=== PATIENT | female | born 1955 | race Caucasian/White ===

== ENCOUNTER → 2020-07-14 | Outpatient (CLI) | payer OTHER ==
[~2020-07-14] MED LIST: ASMANEX0.135 G1 INH; CELEBREX 200 M200 M1 PO; COMPAZINE10 M1 PO; DALMANE15 MG PO; ESTRACE1 MG PO; HYDROCODON-ACE1 EAC2 PO; HYOSCYAMINE0.375 M2 PO; IBUPROFEN 200200 M1 PO; LOMOTIL TABLET1 EACH PO; NORCO 5-325 TA1 EACH PO; PERCOCET 5-3251 EACH PO; PREMARIN0.3 MG PO; PREMARIN0.625 MG PO; PROVERA10 MG PO; PYRIDIUM200 M1 PO; TAMSULOSIN HCL0.4 M1 PER TUBE; VICODIN OR; XOPENEX HF1 UDINHALE IH; ZOFRAN4 MG PO
== END ==
LOC: LAB 11:32
PROVIDERS: ATTEND Surgery
DX: Z20.828 Contact with and (suspected) exposure to other viral communicable diseases (principal)

== ENCOUNTER → 2020-07-21 | Outpatient (CLI) | payer OTHER, MEDICARE | LOC: LAB 14:34 | PROVIDERS: ATTEND Surgery | DX: Z20.828 Contact with and (suspected) exposure to other viral communicable diseases (principal) ==

== ENCOUNTER → 2020-09-27 | Outpatient (CLI) | payer OTHER, MEDICARE ==
--- NOTE | 2020-10-04 12:07 | PATH ---
[facility] [address] [place] [address] PATHOLOGY RPT PROCEDURE Name: SUJEY FOSS Rama Room #: REG [facility].#: [id number] Admission: 09/27/20 Date of : 55 Discharge: Report #: [id number] Path Case #: [id number] [facility] Accession Number: [id number] . 01 Material submitted: . PART A: breast - L BREAST 1:00. Modifiers: left, 1:00 PART B: breast - L BREAST CENTRAL. Modifiers: left, central PART C: breast - L BREAST 1:00, 7 CMFN. Modifiers: left, 1:00 . 01 Clinical history: . LEFT BREAST NODULE/CALCS LEFT BREAST CALCS-CENTRAL . 02 Diagnosis: Breast, left breast 1:00, stereotactic needle core biopsy: - INVASIVE, WELL-DIFFERENTIATED DUCTAL ADENOCARCINOMA, CELESTE GRADE I MEASURING 5 MM IN GREATEST DIMENSION IN A SINGLE CORE IN CONTIGUOUS LENGTH. - BACKGROUND SHOWING DUCTAL CARCINOMA IN SITU OF INTERMEDIATE NUCLEAR GRADE CRIBRIFORM TYPE. - COARSE CALCIFICATION ASSOCIATED WITH DUCTAL CARCINOMA IN SITU. . B. Breast, left breast central, stereotactic needle core biopsy: - INVASIVE, WELL-DIFFERENTIATED DUCTAL ADENOCARCINOMA, CELESTE GRADE I MEASURING 2 MM IN GREATEST DIMENSION IN A SINGLE CORE IN CONTIGUOUS LENGTH. - EXTENSIVE DUCTAL CARCINOMA IN SITU OF INTERMEDIATE NUCLEAR GRADE PRESENT WITHIN THE BACKGROUND OF CRIBRIFORM TYPE. - DUCTAL CARCINOMA ASSOCIATED WITH COARSE CALCIFICATIONS. . C. Breast, left 1:00 7 cm from nipple, ultrasound guided needle core biopsy: - INVASIVE, WELL-DIFFERENTIATED DUCTAL ADENOCARCINOMA, CELESTE GRADE I MEASURING 3 MM IN GREATEST DIMENSION IN A SINGLE CORE IN CONTIGUOUS LENGTH. - Background breast tissue showing nonproliferative fibrocystic changes. (IUV:pit 09/29/2020) QTP 09/29/2020 1308 Local . 02 Comment: Specimen type: Stereotactic needle core biopsy x 2 and ultrasound guided needle core biopsy x 1 Tumor site: Left breast 1:00, left breast central, and left breast 1:00 7 cm from nipple Tumor quantitation: 5 mm, 2 mm, and 3 mm respectively Histologic type: Invasive, well-differentiated ductal adenocarcinoma, and ductal carcinoma in situ in the background [address] [address] PATHOLOGY RPT PROCEDURE Name: SUJEY FOSS Room #: REG NINOSKA Iverson#: [id number] Admission: 09/27/20 Date of : 55 Discharge: Report #: [id number] Path Case #: [id number] Histologic grade: Celeste grade I/III Tubules, nuclei and mitoses: 1, 1 and 1 respectively LVSI: Not identified Microcalcifications: Present in association with ductal carcinoma insitu Markers: ER, [place], Her-2/Kimberlyn and Ki-67 Block: A1 . Co-review: A And P Mechanic slides (A1-7, A3-7, B1-1, B2-1, and C1-1) were co-reviewed by Dr. Yani Gramajo who concurs with my diagnosis. . Findings of this case are discussed with Dr. Efraín Acuna at approximately 10:20 am on 09/29/2020. . ER, KY, Her-2/Kimberlyn, and Ki-67 are performed on block A1 only as the tumor appears morphologically similar in all of the foci. . Properly controlled immunohistochemical stains are performed on block A3 and included p63 as well as SMMHC. The markers show complete loss of myoepithelial cell layer around the tumor supporting the diagnosis rendered. Properly controlled E-cadherin immunohistochemical stain is performed on block B1 and it shows strong membranous reactivity present. The E-cadherin immunohistochemical stain is performed due a lower percentage of tubule formation (less than 10% tubules identified, score = 3); however, the nuclei are lower grade with lower number of mitoses. The intact reactivity of E-cadherin supports this focus to be an invasive, well-differentiated ductal adenocarcinoma (tubules = 3, nuclei = 1 and mitoses= 1). (IUV:pit 09/29/2020) . 02 Addendum: . Special studies report received from [facility], [address] [place] [address], [address], [place], [address], on case [id number], labeled with their number [id number], dated 10/03/2020. . Breast/Prognostic Marker Analysis . Specimen Site: Breast - Breast Cancer Specimen ID #: [id number] . ER (Estrogen Receptor) Present/Positive Percent: 90.00% Analysis: Manual Comments: Staining Intensity: Weak to Moderate. . KY (Progesterone Receptor) Present/Positive Percent: 85.00% [address] [address] PATHOLOGY RPT PROCEDURE Name: SUJEY FOSS Room #: [facility]#: [id number] Admission: 09/27/20 Date of : 55 Discharge: Report #: [id number] Path Case #: [id number] Analysis: Manual Comments: Staining Intensity: Weak to Moderate. . HER2 Not Over-Expressed Score: 1+ Analysis: Manual . Ki-67 Low Proliferation Percent: 5.00% Analysis: Manual . Time to Fixation (Cold Ischemic Time): 5 minutes Duration of Fixation: Not Provided Type of Fixative: 10% Neutral Buffered Formalin . Comments: ER/PgR testing at [facility] [employer]. is performed in compliance with the ASCO/CAP Clinical Practice Guidelines. If the result for ER is less than 1% it is reported as Negative; if the ER result is 1-10% it is reported as Low Positive; if the ER result is greater than 10% it is reported as Positive. If the result for PgR is less than 1% it is reported as Negative; if the PgR result is equal to or greater than 1%, it is reported as Positive. . REF: Sarah KH, Balderas EH, et al: Estrogen and Progesterone Receptor Testing in Breast Cancer. ASCO/CAP Guideline Update. DOI 10.5858/arpa.3745-3537-HL. . Whole slide image capture is performed using [employer] ([employer]) platform. Image analysis, if ordered, is performed using [employer] software. . at [facility] Carlos Jimenez MD Pathologist . Methodology The HER2 Receptor protein expression is analyzed using the [place] HER2 rabbit monoclonal antibody (clone 4B5). This assay is used for diagnostic determination of the HER2 protein over-expression in paraffin embedded, formalin fixed breast cancer tissue on the [employer] Benchmark. The specimen is processed using a secondary antibody-HRP conjugate detection system. The membrane staining of the tumor is determined either by manual score or image analysis. This antibody is intended for in vitro diagnostic use. The score is reported as 0, 1+, 2+, or 3+. This test is used for clinical [address] [address] PATHOLOGY RPT PROCEDURE Name: SUJEY FOSS [facility] [id number] Admission: 09/27/20 Date of : 55 Discharge: Report #: [id number] Path Case #: [id number] purposes. . A rabbit monoclonal antibody (clone SP1) that recognized the Estrogen Receptor is used to perform immunohistochemistry on routinely fixed (formalin) paraffin embedded tissue on the [employer] Benchmark. The specimen is processed using a secondary antibody-HRP conjugate detection system. The percentage of stained tumor nuclei is determined either manually or by image analysis. This test is intended for in vitro diagnostic use. This test is used for clinical purposes. . A rabbit monoclonal antibody (clone 1E2) that recognized the Progesterone Receptor is used to perform immunohistochemistry on routinely fixed (formalin) paraffin embedded tissue on the [place] Benchmark. The specimen is processed using a secondary antibody-HRP conjugate detection system. The percentage of stained tumor nuclei is determined either manually or by image analysis. This test is intended for in vitro diagnostic use. This test is used for clinical purposes. . A rabbit monoclonal antibody (clone 30-9) that recognized Ki67 is used to perform immunohistochemistry on routinely fixed (formalin) paraffin embedded tissue on the [employer] Benchmark. The specimen is processed using a secondary antibody-HRP conjugate detection system. The percentage of stained tumor nuclei is determined either manually or by image analysis. This test is intended for in vitro diagnostic use. This test is used for clinical purposes. . Intended Use: This antibody is intended for in vitro diagnostic (IVD) use. HER2 (4B5) is a rabbit monoclonal antibody intended for the semi-quantitative detection of HER2 antigen in sections of formalin-fixed, paraffin embedded normal and neoplastic tissue. . This antibody is intended for in vitro diagnostic (IVD) use. Estrogen Receptor (ER) (SP1) is a rabbit monoclonal antibody (IgG) that is intended for the qualitative detection of estrogen receptor (ER) antigen in sections of formalin-fixed, paraffin-embedded tissue. ER is a rabbit monoclonal antibody that recognizes human estrogen receptor alpha. . This antibody is intended for in vitro diagnostic (IVD) use. Progesterone Receptor (KY) (1E2) is a rabbit monoclonal antibody (IgG) that is intended for the qualitative detection of progesterone receptor (KY) antigen in sections of formalin fixed, paraffin embedded tissue. KY is a rabbit monoclonal antibody that recognizes the A and B forms of the human progesterone receptor. . This antibody is intended for in vitro diagnostic (IVD) use. Ki-67 (30-9) is a rabbit monoclonal antibody (IgG) directed against C-terminal portion of Ki-67 antigen. Staining for Ki-67 can be used to aid in assessing the [facility] [address] [place] [address] PATHOLOGY RPT PROCEDURE Name: SUJYE FOSS Room #: REG NINOSKA M.Danyell.#: [id number] Admission: 09/27/20 Date of : 55 Discharge: Report #: [id number] Path Case #: [id number] proliferative activity of normal and neoplastic tissue. Ki-67 is a nuclear protein expressed in proliferating cells. During the cell cycle, the Ki-67 antigen is present in the G1, S, G2 and M phase but is absent in the G0 (quiescent phase). . . Disclaimer: This Test was performed by [employer] at [address] [place] [address], [facility]. . [facility] [employer] is a business unit of [employer] a wholly-owned subsidiary of [employer]. . This assay has not been validated on decalcified tissues. Results should be interpreted with caution if this specimen was decalcified given the likelihood of false negativity on decalcified specimens. . Any image(s) that accompany this report is/are a eligibility services representative image(s) only and should not be used to render a diagnosis. . This interpretation is contingent on the specimen and the clinical information received. . For any special tests/stains performed, known positive cells or tissues are tested with each marker and examined to ensure positivity. Positive and negative internal controls, if present, react appropriately. . This analysis is an adjunct to the evaluation of the referring physician and does not represent a final diagnosis. . The immunohistochemistry tests performed at [facility] were validated on tissue fixed in 10% neutral buffered formalin. The performance characteristics of the tests performed on tissue processed in other fixatives is not known. . HER2 testing at [employer] is performed in compliance with the 2018 updated ASCO/CAP Clinical Practice Guideline Focused Update. If the result is EQUIVOCAL (2+), it must be confirmed by an alternative assay such as FISH or Dual JOSE. REF: Jaleel SLATER, JATINDER Balderas et al: Human Epidermal Growth Factor Receptor 2 Testing in Breast Cancer: ASCO/CAP Clinical Practice Guideline Focused Update. J Clin Oncol 36:9100-2582, 2018. . HER2 and ER/KY ASCO/CAP guidelines require fixation in neutral buffered formalin for a minimum of 6 and a maximum of 72 hours. Fixation times less than 6 hours may not adequately preserve cell proteins. Fixation times longer than 72 hours may cause excess cross-linking of proteins reducing [facility] [address] [place] [address] PATHOLOGY RPT PROCEDURE Name: STEVE SUJEY ACUNA Room #: REG [facility]#: [id number] Admission: 09/27/20 Date of : 55 Discharge: Report #: [id number] Path Case #: [id number] the antigen available for staining. Either scenario can cause reduced staining; hence false negative results are possible and should be considered for these situations if the HER2 IHC score is less than 3+ or ER or KY is negative (no staining or <1% positive). It is recommended that specimens fixed longer than 72 hours with HER2 IHC scores less than 3+ be confirmed by HER2 FISH or Dual JOSE. The time from biopsy/excision to fixation in formalin (cold ischemic time) must be less than 1 hour. Time to fixation (cold ischemic time) greater than 1 hour should be interpreted with caution. HER2 testing, mainly HER2 by FISH, is particularly vulnerable since excessive cold ischemic time results in preferential loss of HER2 probe signals that may lead to false negative results. . SCORE STAINING PATTERN IN TUMOR CELLS INTERPRETATION RESULTS 0 No staining observed or incomplete, faint membrane staining in less than or equal to 10% of tumor cells. Negative 1+ Incomplete, faint membrane staining in greater than 10% of tumor cells. Negative 2+ Weak to moderate complete membrane staining observed in greater than 10% of tumor cells. Equivocal* *Must be confirmed by alternative assay (IHC/FISH/Dual JOSE) 3+ Intense, complete membrane staining in greater than 10% of tumor cells. Positive . A complete copy of the report is on file. . Professional and Technical services performed by [employer]. at [address] [facility] [address], [place] [address]. . (IUV:amj 10/03/2020) . AZJ/10/03/2020 Addendum Electronically Signed by Mahsa Castellanos MD, Pathologist . 02 Electronically signed: . Mahsa Castellanos MD, Pathologist NPI- [id number] . 01 Gross description: . A. The specimen is received in formalin, labeled "Sujey Foss A" and consists of a white cassette containing multiple needle cores of yellow fibroadipose tissue measuring 3.5 x 2.2 x 0.5 [place] [address] PATHOLOGY RPT PROCEDURE Name: SUJEY FOSS Room #: REG CLVikash Iverson#: [id number] Admission: 09/27/20 Date of : 55 Discharge: Report #: [id number] Path Case #: [id number] are transferred to cassette A1. Also received are multiple needle cores of yellow fibroadipose tissue measuring 5.3 x 2.0 x 0.5 cm in aggregate which are entirely submitted in A2-A3. The specimen was collected at 12:20 PM on 09/27/2020 and placed in formalin at 12:25 PM. The cold ischemic time is 5 minutes and the total formalin fixation time is greater than 6 hours less than 72 hours. . B. The specimen is received in formalin, labeled "Sujey Foss, B" and consists of a white cassette containing multiple needle cores of yellow fiber adipose tissue measuring 3.5 x 1.8 x 0.5 cm in aggregate which are transferred to cassette B1. Also received are multiple needle cores of yellow-white fibroadipose tissue measuring 4.5 x 3.5 x 0.6 cm in aggregate which are entirely submitted in B2-B3. The specimen was collected at 12:50 PM on 09/27/2020 and placed in formalin at 12:57 PM. The cold ischemic time is 7 minutes and the total formalin fixation time is greater than 6 hours less than 72 hours. . C. The specimen is received in formalin, labeled "Sujey Foss, C" and consists of 6 needle cores/fragments of pink-yellow tissue measuring between 0.3 cm and 1.4 cm in length and 0.1-0.2 cm in diameter which are entirely submitted in C1-C3. The specimen was collected at 1:30 PM on 09/27/2020 and placed in formalin at 1:32 PM. The cold ischemic time is 2 minutes and the total formalin fixation time is greater than 6 hours less than 72 hours. (SDY; 09/28/2020) SYU/SYU 09/28/2020 1331 Local . 02 Pathologist provided ICD-10: C50.912, D05.12 . 02 CPT . 989328, 785661, 257730, T23156, M41148 Specimen Comment: A courtesy copy of this report has been sent to [phone], [phone] Specimen Comment: [phone] Specimen Comment: Report sent to / DR ACUNA Performed at: [address], [place], [place] [id number] MD Sonu Verde MD Phone: [phone] Performed at: [address] [id number] MD Mahsa Castellanos MD Phone: [phone]
== END | disposition home or self-care (01) ==
LOC: ULTRA 10:56
PROVIDERS: ATTEND Surgery
DX: C50.912 Malignant neoplasm of unspecified site of left female breast (principal); R92.1 Mammographic calcification found on diagnostic imaging of breast

== ENCOUNTER → 2020-10-13 | Outpatient (CLI) | payer OTHER, MEDICARE ==
[~2020-10-13] MED LIST changes: +ALPRAZOLAM1 MG PO; +CBD PO; +OMEPRAZOLE40 MG PO; +SINGULAIR 10 MG10 M1 PO
== END ==
LOC: LAB 10:46
PROVIDERS: ATTEND Surgery
DX: Z01.812 Encounter for preprocedural laboratory examination (principal); Z20.822 Contact with and (suspected) exposure to COVID-19

== ENCOUNTER 2020-10-14 08:25 | Observation (INO) | payer OTHER, MEDICARE ==
[2020-10-14] VITALS (12 sets, daily range): BP systolic 92–130; BP diastolic 29–99
[~2020-10-14] VITALS: Ht 170.2 cm; Wt 62.6 kg
--- NOTE | 2020-10-14 12:44 | EKG ---
[place] [address] [facility] [employer] [place] [address] ELECTROCARDIOGRAM REPORT Name: SUJEY CARMEN Room #: 150-4 [facility]#: [id number] Admission: 10/14/20 Attend Phys: Efraín Daniel MD Discharge: Date of : 55 Report #: [id number] [facility] Test Date: 2020-10-14 Test Time: 09:45:51 Pat Name: SUJEY DANIEL Department: Room: 150 Gender: F Musculoskeletal Physician: DOROTHY : 1955 Requested By: Efraín Daniel Order Number: [id number] : Rj Duque Measurements Intervals [place] Rate: 61 P: 46 DC: 159 QRS: 28 QRSD: 81 T: 21 QT: 419 QTc: 422 Interpretive Statements Sinus rhythm Abnormal R-wave progression, early transition Compared to ECG 01/27/2010 10:41:32 No significant changes Electronically Signed On 10-14-2020 12:44:31 MUD TEMPERER by Rj Duque [email or web address] <ELECTRONICALLY SIGNED> By: Rj Duque MD, [facility] 10/14/20 1244 0945 4 Rj Duque MD, FACC /EPI
[2020-10-14 17:55] LABS: HEMATOCRIT 37.7 % (37.0-47.0); HEMOGLOBIN 12.2 gm/dL (12.0-15.0); MCH 30.2 pg (26.0-34.0); MCHC 32.2 g/dL (28.0-37.0); MCV 93.6 fL (80.0-100.0); RBC 4.03 mil/uL (4.20-5.00); RDW 13.2 % (10.5-14.5); WBC 10.5 thou/uL (4.0-11.0)
[2020-10-14 18:12] LABS: APTT 24.3 Seconds (24.5-32.8)
--- NOTE | 2020-10-14 19:03 | NUR ---
PT ENTERED THE FLOOR AT 1540 FROM OR. VITALS STABLE. PAIN MEDICATION GIVEN FOR UNCONTROOLABLE PAIN. CELESTE DRAIN EMPTIED AT 1600 WITH 80CC. CHEST BINDER IN PLACE. PT HAS URINATED. IV PATENT WITH NO REDNESS OR EDEMA, SALINE LOCKED. PT SPOUSE CAME OUT OF THE PT ROOM STATING THAT SHE HAS BLEEDING. CHECKED ON PT. VITALS CONTINUE TO BE STABLE MINUS PULSE AT 54. CELESTE DRAINED AGAIN WITH 90CC OUT. ENTIRE L. BREAST BLUE (HEMATOMA). PT BACK TO OR AT 1620.
[2020-10-15] VITALS (11 sets, daily range): BP systolic 57–104; BP diastolic 19–60
[2020-10-15 05:21] LABS: MCH 30.6 pg (26.0-34.0); MCHC 33.5 g/dL (28.0-37.0); MCV 91.4 fL (80.0-100.0); RBC 3.06 mil/uL (4.20-5.00); RDW 13.4 % (10.5-14.5); WBC 6.8 thou/uL (4.0-11.0)
[2020-10-15 05:23] LABS: HEMOGLOBIN 9.4 gm/dL (12.0-15.0)
[2020-10-15 05:36] LABS: CALCIUM 6.6 mg/dL (8.5-10.1); CREATININE 0.7 mg/dL (0.6-1.0); POTASSIUM 3.1 mmol/L (3.5-5.1)
--- NOTE | 2020-10-15 06:17 | NUR ---
ASSUMED CARE OF PATIENT FROM PACU. PATIENT ALERT, PAIN WELL CONTROLLED. DID REQUIRE ONE OXYCODONE THAT SHE STATED HELPED A LOT. AWAKE MOST OF THE NIGHT, ENCOURAGED TO REST. CELESTE DRAINS EMPTIED NEEDED. SO S/S OF DISTRESS. PROGRESSING SLOWLY TOWARDS POC GOALS.
--- NOTE | 2020-10-15 07:38 | O ---
[facility] [place] [address] [place] [address] OPERATIVE REPORT Name: SUJEY CARMEN Rama Room #: 242-P [facility] M..#: [id number] Admission: 10/14/20 Attend Phys: Efraín Acuna MD Discharge: Date of : 55 Report #: [id number] THIS REPORT FOR: cc: Jagdeep Mota Steven F. DO Chu, Peter Y. MD ~ DATE OF SERVICE: 10/14/2020 PREOPERATIVE DIAGNOSIS: Multifocal left breast cancer with ductal carcinoma in situ and invasive ductal component. POSTOPERATIVE DIAGNOSIS: Multifocal left breast cancer with ductal carcinoma in situ and invasive ductal component. PROCEDURES PERFORMED: Left total mastectomy with left sentinel node biopsy. SURGEON: Efraín Acuna MD ANESTHESIA: General anesthesia. ESTIMATED BLOOD LOSS: 50 mL. COMPLICATIONS: None. DESCRIPTION OF PROCEDURE: With the patient under general anesthesia, the Neoprobe was used to listen to the left axilla. The activity was fairly low around 20. I decided to go ahead and inject 2 mL of Lymphazurin subareolarly. Breast was then prepped with ChloraPrep, toweled and draped in sterile fashion. IV antibiotic was administered. Timeout was performed. The mastectomy incisions were made. This included the upper outer two biopsy sites. More inferior stereotactic breast biopsy site was fairly far away and would not be amenable to include that in the incision that was left. The upper skin flap was created. Skin flap was created right at the level of the superficial fascia. The superior skin flap was taken up to just below the clavicle where the breast starts. Attention was paid to the left upper quadrant area where her lesion was located and this was dissected free from the skin up over the upper part of the pectoralis muscle. The inferior skin flap was then created without difficulty in a similar manner. The breast was then taken off the chest wall. During the procedure, medium clips were applied at perforating vessel sites. No bleeding of any significance was encountered during the dissection. The breast was then taken off laterally. The breast was oriented for the pathology with a short stitch superiorly, long stitch laterally. Using separate set of instruments, changing gloves and cautery tip, the sentinel node biopsy was performed. The activity was heard at a specific area, it was [address] [address] OPERATIVE REPORT Name: STEVE SUJEY ACUNA Room #: 242-P [facility] M.R.#: [id number] Admission: 10/14/20 Attend Phys: Efraín Acuna MD Discharge: Date of : 55 Report #: [id number] not real high, in the range of 20 or so. Dissection in this area also showed we were at the lymphatic channel with the Lymphazurin and then the lymph node that was positive for the radioactive activity also had Lymphazurin in it. This is labeled sentinel node. There were actually 3 lymph nodes in a chain together. This was the medial lymph node. This was isolated and sent to pathology as a sentinel node. The other two lymph nodes, one inferior, one superior will be sent for permanent sectioning. Hemostasis obtained. A #19 Akira drain was brought out laterally. This was sewn with 2-0 silk suture to the skin. This was guided up towards the axilla superiorly and then under the upper and curling around to the lower skin flap. No bleeding was identified. The subcutaneous tissue was closed with 3-0 PDS. Skin was closed with 4-0 PDS running subcuticular fashion. Dermabond was applied. Fluffy dressing was applied. The patient was awakened and taken to recovery room. <ELECTRONICALLY SIGNED> By: Efraín Acuna MD 10/15/20 0738 2117 2224 Efraín Acuna MD /nt
--- NOTE | 2020-10-15 07:38 | O ---
[facility] [place] [address] [address] OPERATIVE REPORT Name: SUJEY CARMEN Room #: 242-P [facility] M..#: [id number] Admission: 10/14/20 Attend Phys: Efraín Daniel MD Discharge: Date of : 55 Report #: [id number] THIS REPORT FOR: cc: Jagdeep Mota Steven F. DO Chu, Peter Y. MD ~ DATE OF SERVICE: 10/14/2020 PREOPERATIVE DIAGNOSIS: Postop mastectomy hemorrhage with hematoma under the flap. POSTOPERATIVE DIAGNOSIS: Postop mastectomy hemorrhage with hematoma under the flap. PROCEDURES PERFORMED: Exploration of post mastectomy wound with suture ligation of bleeders site. SURGEON: Efraín Daniel MD ANESTHESIA: General anesthesia. TOTAL BLOOD LOSS: On the skin flap was 500 mL. COMPLICATIONS: None. The patient received one unit of packed cell. DESCRIPTION OF PROCEDURE: The patient was brought down to recovery room for preop. The patient was getting laboratory blood drawn to see where she is at with type and screen and the patient became hypotensive, possibly a vasovagal reaction. Possibly mixed with blood loss. The patient's flap was opened up and she was resuscitated. She started waking up. Blood pressure came back to the 80s and 90s. Anesthesia was present. A second IV was started. The patient was then taken back to the operating room and put under general anesthesia. Betadine was used to prep the mastectomy site. Skin incision was opened. A fairly large amount of clots were removed along with liquified blood measuring a total volume of 500 mL. Exploration of the wound shows a small arterial bleed identified in the pectoralis muscle laterally. This was suture ligated and controlled. Several small sites of oozing were also suture ligated with 4-0 PDS suture. The skin flaps were little thickened and edematous, but viable. Warm irrigation was performed. The patient did receive a unit of blood. The patient did remain stable through the surgery similar to how she was with the first surgery. Two #19 Akira drains were left. One was left lateral and was going up to the axilla and then under the upper flap. The more medial [facility] [address] [place] [address] OPERATIVE REPORT Name: SUJEY CARMEN Room #: 242-P [facility] M..#: [id number] Admission: 10/14/20 Attend Phys: Efraín Daniel MD Discharge: Date of : 55 Report #: [id number] drain was placed under the lower flap coming medially to the upper flap. Michael was placed on the chest wall and also a skin flap. Two #19 Akira drains were left, one going to the axilla, the other one going inferior flap and then to the upper flap. The skin flap was closed. Subcutaneous tissue was closed with 3-0 PDS in running fashion, 4-0 PDS was used to close the skin in a running fashion. Dermabond was applied. Drain dressing Op-Site was used for the drain site and a fluffy 4 x 4s, ABD, and Medipore tape for the breast. The patient was taken to recovery room, and due to the hypotensive episode, we will go ahead and have her watched in the ICU tonight. <ELECTRONICALLY SIGNED> By: Efraín Daniel MD 10/15/20 0738 27 50 Efraín Daniel MD /nt
--- NOTE | 2020-10-15 11:30 | NUR ---
PER JONATHAN MADDOX FOR Q4 VITALS WHILE IN ICU. PATIENT TRANSPORTED TO RM 440 BY WHEELCHAIR WITH NO COMPLICATIONS.
--- NOTE | 2020-10-19 10:07 | PATH ---
[facility] [address] [place] [address] PATHOLOGY RPT PROCEDURE Name: SUJEY FOSS Rama Room #: 440-P [facility] M.R.#: [id number] Admission: 10/14/20 Date of : 55 Discharge: 10/15/20 Report #: [id number] Path Case #: [id number] [facility] Accession Number: [id number] . 01 Material submitted: . PART A: lymph node - SENTINEL LYMPH NODE FS PART B: lymph node - NON SENTINEL LYMPH NODE PART C: breast - LEFT BREAST SHORT SUTURE SUPERIOR LONG LATERAL . Modifiers: left . 01 Clinician provided ICD-10: C50.012 . 01 Clinical history: . LEFT BREAST CANCER MULTIFOCAL . 02 Frozen section diagnosis: . FROZEN SECTION DIAGNOSIS AND TOUCH PREPARATION (Mahsa Castellanos MD) . TPA1, [place] lymph node: - No definitive malignant epithelial cells suggestive of macrometastatic carcinoma identified. . These findings are discussed with Dr. Efraín Acuna in OR5 at [facility] and a written report is placed in the patient's chart. . . Frozen section and touch prep performed at [facility], [address] [place] [address]. . . FROZEN SECTION GROSS DESCRIPTION A. Specimen is received fresh from the OR labeled with the patient's name, and "sentinel lymph node", consists of an oval fatty fragment of tissue measuring approximately 2.5 x 1.5 x 1 cm. The specimen is bisected to show a light blue-green dye within a 1.5 x 1 x 1 cm lymph node. The lymph node is bisected, touch preparation is made and labeled TPA1. The entire bisected lymph node is submitted for sentinel lymph node protocol in A1 for permanent sections. (IUV:hong; 10/14/2020) SHALINI/JULIA . 02 Diagnosis: A. Lymph node (1), sentinel lymph node, biopsy: - Reactive lymph node; negative for malignancy. - Negative for isolated tumor cells are micrometastases on the properly controlled immunohistochemical stain AE1/AE3 (0/1). [address] [address] PATHOLOGY RPT PROCEDURE Name: STEVE ACUNASUJEY A Room #: 440-P [facility] Macrina Gandhi.Kyler#: [id number] Admission: 10/14/20 Date of : 55 Discharge: 10/15/20 Report #: [id number] Path Case #: [id number] . B. Lymph node (1), non-sentinel lymph node, biopsy: - Reactive lymph node; negative for malignancy (0/1). . C. Breast, left breast, mastectomy: - DUCTAL CARCINOMA IN SITU, INTERMEDIATE NUCLEAR GRADE AND CRIBRIFORM TYPE IN UPPER OUTER QUADRANT WELL LOWER OUTER QUADRANT FOCALLY. - No residual invasive carcinoma present, see comment. - Three separate biopsy sites identified. - Margins widely free of invasive carcinoma. - Margins free of ductal carcinoma in situ; closest deep margin is 0.8 cm away. - Atypical lobular hyperplasia present within upper outer quadrant along with radial scar, adenosis, columnar cell hyperplasia with atypia, as well as apocrine metaplasia. - Skin and nipple with no evidence of malignancy. - Focal skeletal muscle present at deep margin showing no evidence of malignancy. - One lymph node with reactive changes; negative for malignancy (0/1). . (IUV:executive receptionist; 10/18/2020) . . Surgical Pathology Cancer Case Summary . Protocol posting date: October 2019 . INVASIVE CARCINOMA OF THE BREAST: . . Specimen Identification Procedure ___ Total mastectomy . Specimen Laterality ___ Left . Tumor Site: Invasive Carcinoma ___ Position: 1:00, central and 1:00 clock 7cmFN, Upper outer quadrant . Tumor Size ___ 0.5 cm, 0.2 cm and 0.3 cm (5mm, 2mm and 3mm) . Histologic Type ___ Invasive ductal carcinoma . Histologic Grade (Deysi Histologic Score) ___ No residual invasive carcinoma in the mastectomy [address] [address] PATHOLOGY RPT PROCEDURE Name: SUJEY FOSS Room #: 440-P [facility] M.R.#: [id number] Admission: 10/14/20 Date of : 55 Discharge: 10/15/20 Report #: [id number] Path Case #: [id number] . Tumor Focality ___ Three foci with 1.1 cm and 0.3 cm distance the lesions . Ductal Carcinoma In-Situ (DCIS) ___ Cribriform type, intermediate nuclear grade . Tumor Extension Skin ___ None . Nipple ___ None . Skeletal Muscle ___ Skeletal muscle is free of carcinoma . Margins . Invasive Carcinoma Margins ___ Uninvolved by invasive carcinoma No residual invasive carcinoma in the mastectomy . DCIS Margins ___ Uninvolved by invasive carcinoma Distance from closest margin (millimeters): 8 mm Specify closest margin: posterior/deep . Regional Lymph Nodes . ___ Involved by tumor cells Number of Lymph Nodes Examined: 3 Number of [place] Nodes Examined: 1 Number of Lymph Nodes with Macrometastases (>2 mm): 0 Number of Lymph Nodes with Micrometastases (>0.2 mm to 2 mm and/or >200 cells): 0 Number of Lymph Nodes with Isolated Tumor Cells (=0.2 mm or =200 cells): 0 . Treatment Effect ___ No known presurgical therapy . Lymphovascular Invasion ___ Not identified . Dermal Lymphovascular Invasion ___ Not identified . Pathologic Stage Classification (pTNM, AJCC 8th Edition) [address] [address] PATHOLOGY RPT PROCEDURE Name: SUJEY FOSS Room #: 440-P [facility] Iverson#: [id number] Admission: 10/14/20 Date of : 55 Discharge: 10/15/20 Report #: [id number] Path Case #: [id number] Note: Reporting of pT, pN, and (when applicable) pM categories is based on information available to the pathologist at the time the report is issued. . . TNM Descriptors ___ m (multiple foci of invasive carcinoma) . Primary Tumor (Invasive Carcinoma) (pT) ___ pT1a:Tumor >1 mm but =5 mm in greatest dimension (round any measurement >1.0-1.9 mm to 2 mm) . Category (pN) Modifier (required only if applicable) ___ (sn):[place] node(s) evaluated. . ___ pN0:No regional lymph node metastasis identified . Distant Metastasis (pM) (required only if confirmed pathologically in this case) ___ pMX: Unknown . (IUV:executive receptionist; 10/18/2020) [facility] 10/19/2020 0958 Local . 02 Comment: A, B. Properly controlled AE1/AE3 immunohistochemical stain is performed. . AE1/AE3 on block A1 - negative for metastatic carcinoma. AE1/AE3 on block B1 - negative for metastatic carcinoma. . C. Mass #1, #3 and #4 were associated with biopsy site changes and were by 1.1 cm and 0.3 cm approximately. The sections submitted from the intervening breast tissue between the biopsy site changes show proliferative fibrocystic changes with no evidence of malignancy or ductal carcinoma in situ. Multiple biopsies were examined from 1:00, central, as well as 1:00 7 cm from nipple, and each of these showed 5 mm, 2 mm and 3 mm invasive ductal carcinoma respectively in contiguous length in a single core (biopsy report number [id number]; please see separate report for complete details). There is no residual invasive carcinoma identified within the current specimen examined. The entire upper outer quadrant was submitted for microscopic examination. . These findings are conveyed to Dr. Efraín Acuna in the morning of 10/18/2020. . (IUV:executive receptionist; 10/18/2020) . 02 Electronically signed: . [facility] [address] [place] [address] PATHOLOGY RPT PROCEDURE Name: SUJEY FOSS A Room #: 440-P [facility]..#: [id number] Admission: 10/14/20 Date of : 55 Discharge: 10/15/20 Report #: [id number] Path Case #: [id number] Mahsa Castellanos MD, Pathologist NPI- [id number] . 01 Gross description: . A. PLEASE SEE GROSS DESCRIPTION UNDER FROZEN SECTION DIAGNOSIS. . B. The specimen is received in formalin, labeled "Sujey Foss, non-sentinel node" and consists of 2 segments of yellow orange lobulated tissue measuring 1.7 x 1.6 x 1.0 cm and 2.2 x 2.2 x 1.0 cm. Present within this is a lymph node measuring 2.2 x 1.8 cm showing pink-clemons fatty cut surfaces. The specimen is entirely submitted in B1-B3. . C. The specimen is received in formalin, labeled "Leydi Fossetta, left breast" and consists of an oriented 472.2 g mastectomy specimen with a long suture lateral and short superior. The breast tissue measures 16.3 x 17.4 x 3.5 cm and anterior pink-clemons skin ellipse measuring 13.4 x 5.1 cm. The skin displays an everted nipple areolar complex measuring 2.8 x 2.8 cm. Present on the deep margin is scattered brown muscle. Posterior is inked black, superior-anterior blue, and inferior-anterior green. It is sectioned revealing a pink-clemons mass in the upper outer quadrant (lower portion of outer quadrant approximate 1-2 o'clock position) measuring 3.4 x 1.6 cm that is to margins as follows: 0.3 cm posterior, 2.5 cm superior, and 2.5 cm inferior. The mass shows previous biopsy changes with white plastic beads embedded just posterior the mass. This mass is designated as mass 1. 0.3 cm inferior-medial mass 1, is a second circumscribed pink mass (mass 2) measuring 0.8 x 0.5 cm. This mass is 0.5 cm to posterior and greater than 2 cm from all other margins. 1.1 cm inferior mass 2, in the outer quadrant, is a previous biopsy site measuring 1.4 x 1.4 cm that is 0.5 cm to posterior and 1.0 cm or greater from all other margins. Within this site is a 0.9 x 0.6 cm mass (mass 3). 0.3 cm medial to mass 3, is a previous biopsied mass (mass 4) measuring 2.4 x 1.2 cm that is to margins as follows: 0.5 cm posterior, and greater than 1.5 cm all other margins. . If all previously described masses are contiguous, the total greatest dimension is 7.5 cm. The remaining parenchyma is yellow orange lobulated with 25% dense fibrous tissue and multiple scattered palpable pink nodules predominantly in the upper inner and lower inner quadrants. A blue lymph node candidate is present, lateral to mass 1 in the upper outer quadrant. Financial Quantitative Analyst sections are submitted as follows: . C1: Nipple C2-C6: Entire mass 4 from medial to lateral C7: Tissue between mass 4 and mass 3 C8-C9: Entire mass 3 C10-C11: Entire mass 2 C12: Tissue between mass 2 and mass 1 C13-C17: Entire mass [address] [facility] [address] [place] [address] PATHOLOGY RPT PROCEDURE Name: SUJEY FOSS Room #: 440-P [facility].#: [id number] Admission: 10/14/20 Date of : 55 Discharge: 10/15/20 Report #: [id number] Path Case #: [id number] C18: Lymph node candidate upper outer quadrant C19: Additional lower inner quadrant to include palpable nodules C20: Upper inner quadrant to include palpable nodules C21: Additional lower outer quadrant C22-C55: Entire remainder of upper outer quadrant from medial to lateral (SDY; 10/15/2020) SYU/MBR 10/18/2020 1346 Local . 02 Pathologist provided ICD-10: D05.12, N62, L90.5, N60.22, N60.82 . 02 CPT . 735201, 065274, 060229, [id number] Specimen Comment: A courtesy copy of this report has been sent to [phone] Specimen Comment: Report sent to Performed at: [address], [place] [id number] MD Sonu Verde MD Phone: [phone] Performed at: [address] [id number] MD Mahsa Castellanos MD Phone: [phone]
== END 2020-10-15 15:56 | disposition home or self-care (01) ==
LOC: OR 08:25 → TBA 08:25 → OR 12:27 → 4S 16:04 → ICU 21:16 → 4S 10-15 11:29
PROVIDERS: ADMIT Surgery; ATTEND Surgery
DX: C50.912 Malignant neoplasm of unspecified site of left female breast (principal); I95.9 Hypotension, unspecified; M96.831 Postprocedural hemorrhage of a musculoskeletal structure following other procedure
CPT/HCPCS: 50010; 50101; 50331; 50386; 50417; 51301; 52287; 54118; 55415; 56524; 56525; 56526; 56527; 62110; 62900; 65090; 70005

== ENCOUNTER → 2020-11-30 | Outpatient (CLI) | payer OTHER, MEDICARE | LOC: MRI 09:14 | PROVIDERS: ATTEND Surgery | DX: S23.120A Subluxation of T2/T3 thoracic vertebra, initial encounter (principal); G96.191 Perineural cyst; M51.36 Other intervertebral disc degeneration, lumbar region; M47.814 Spondylosis without myelopathy or radiculopathy, thoracic region; M40.204 Unspecified kyphosis, thoracic region; M47.812 Spondylosis without myelopathy or radiculopathy, cervical region; M48.02 Spinal stenosis, cervical region; X58.XXXA Exposure to other specified factors, initial encounter; Y93.89 Activity, other specified; Y92.89 Other specified places as the place of occurrence of the external cause; Y99.8 Other external cause status ==

== ENCOUNTER → 2020-12-01 | Outpatient (CLI) | payer OTHER, MEDICARE | LOC: MRI 09:28 | PROVIDERS: ATTEND Surgery | DX: M51.36 Other intervertebral disc degeneration, lumbar region (principal); G96.191 Perineural cyst; M46.1 Sacroiliitis, not elsewhere classified ==

== ENCOUNTER → 2020-12-15 | Outpatient (CLI) | payer OTHER, MEDICARE | LOC: NUC 09:06 | PROVIDERS: ATTEND Surgery | DX: M85.88 Other specified disorders of bone density and structure, other site (principal); M81.0 Age-related osteoporosis without current pathological fracture ==

== ENCOUNTER → 2020-12-22 | Outpatient (CLI) | payer OTHER, MEDICARE | LOC: LAB 14:00 | PROVIDERS: ATTEND Surgery | DX: R89.5 Abnormal microbiological findings in specimens from other organs, systems and tissues (principal) ==

== ENCOUNTER → 2021-02-14 | Outpatient (CLI) | payer OTHER, MEDICARE | LOC: CAT 12:30 | PROVIDERS: ATTEND Surgery | DX: M25.851 Other specified joint disorders, right hip (principal); M47.816 Spondylosis without myelopathy or radiculopathy, lumbar region; M25.78 Osteophyte, vertebrae; G95.89 Other specified diseases of spinal cord; R10.2 Pelvic and perineal pain ==

== ENCOUNTER → 2021-02-15 | Outpatient (CLI) | payer OTHER, MEDICARE | LOC: CAT 11:16 | PROVIDERS: ATTEND Surgery | DX: S09.8XXA Other specified injuries of head, initial encounter (principal); W19.XXXA Unspecified fall, initial encounter; Y93.89 Activity, other specified; Y92.89 Other specified places as the place of occurrence of the external cause; Y99.8 Other external cause status ==

== ENCOUNTER → 2021-04-11 | Outpatient (CLI) | payer OTHER, MEDICARE | LOC: BC 12:18 | PROVIDERS: ATTEND Surgery | DX: Z12.31 Encounter for screening mammogram for malignant neoplasm of breast (principal); Z85.3 Personal history of malignant neoplasm of breast; R92.8 Other abnormal and inconclusive findings on diagnostic imaging of breast ==

== ENCOUNTER → 2021-05-25 | Outpatient (CLI) | payer OTHER, MEDICARE ==
[~2021-05-25] MED LIST changes: +ONE-DAILY MULT1 EAC1 PO; +VITAMIN C250 M1 PO; +VITAMIN D310 MC2 PO
== END ==
LOC: RAD 11:23
PROVIDERS: ATTEND Surgery
DX: J43.9 Emphysema, unspecified (principal); J98.11 Atelectasis; R05 Cough; D64.9 Anemia, unspecified

== ENCOUNTER → 2021-05-26 | Outpatient (CLI) | payer OTHER, MEDICARE ==
[~2021-05-26] VITALS: Ht 167.6 cm; Wt 56.4 kg
[2021-05-26 09:58] VITALS: BP 100/39
[2021-05-26 10:13] LABS: HEMATOCRIT 21.2 % (37.0-47.0); HEMOGLOBIN 7.3 gm/dL (12.0-15.0); MCH 30.1 pg (26.0-34.0); MCHC 34.5 g/dL (28.0-37.0); MCV 87.3 fL (80.0-100.0); PLATELET COUNT 121 thou/uL (150-400); RBC 2.43 mil/uL (4.20-5.00); RDW 14.3 % (10.5-14.5); WBC 2.6 thou/uL (4.0-11.0)
[2021-05-26 10:31] LABS: INR 0.98; PROTIME 10.7 Seconds (10.5-12.1)
[2021-05-26 11:54] VITALS: BP 108/57
[2021-05-26 13:39] LABS: ABSOLUTE NEUTROPHILS 1.5 thou/uL (1.4-8.2); PLATELET ESTIMATE NORMAL
--- NOTE | 2021-05-31 14:07 | PATH ---
[facility] [address] [place] [address] PATHOLOGY RPT PROCEDURE Name: SUJEY FOSS Room #: REG [facility]..#: [id number] Admission: 05/30/21 Date of : 55 Discharge: Report #: [id number] Path Case #: [id number] [facility] Accession Number: [id number] . 01 Material submitted: . PART A: bone - BONE MARROW BIOPSY PART B: bone - BONE MARROW CLOT PART C: bone - BONE MARROW ASPIRATE SLIDES PART D: bone - BONE MARROW PERIPHERAL SMEAR PART E: bone - BONE MARROW SENDOUT . 01 Clinical history: . 65 YEAR OLD WOMAN WITH PANCYTOPENIA AND HISTORY OF BREAST CANCER. . 01 Frozen section diagnosis: . . /QMS . 02 Diagnosis: Bone marrow aspirate, biopsy, cell clot and peripheral blood: - Peripheral blood with pancytopenia including severe normocytic anemia, moderate leukopenia and mild thrombocytopenia. - HYPERCELLULAR BONE MARROW WITH TRILINEAGE HEMATOPOIESIS, SIGNIFICANT TRILINEAGE DYSPOIESIS AND INCREASED BLASTS/IMMATURE CELLS CONSISTENT WITH ACUTE MYELOID LEUKEMIA. - See comment. (EDMUND:elie; 05/30/2021) . . Special studies report received from [facility], [address] [place] [address], [address], [place], [address], on case [id number], labeled with their number [id number], dated 05/30/2021. . Flow Cytometry: Hematologic Neoplasia Assessment . 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 Specimen Bone Marrow . Viability 83% (7AAD exclusion) . Interpretation [address] [address] PATHOLOGY RPT PROCEDURE Name: SUJEY FOSS Rama Room #: [facility]#: [id number] Admission: 05/30/21 Date of : 55 Discharge: Report #: [id number] Path Case #: [id number] Bone Marrow: - Features of myeloid dysmaturation with at least 4.2% abnormal myeloid blasts (see comment). - 0.6% polytypic plasma cells detected. - Mild relative eosinophilia (9%). . Comments This is a challenging case due to prominent dysplastic features in the myeloid cells and variable expression of CD34, CD117 and HLA-DR on the immature myeloid cells; making accurate estimation of the blast percentage difficult. The flow cytometry results are compatible with a myeloid neoplastic process with the differential diagnosis primarily including myelodysplastic syndrome and evolving acute myeloid leukemia. Erythroid and megakaryocytic markers were performed and showed no evidence of a significant immature erythroid or megakaryocytic population. Correlation with available clinical, laboratory, and morphologic data, including manual differential count, is necessary. . The case was discussed with Dr. Gramajo on 05/30/2021 . Populations Analyzed . Myeloid Blasts: 4.2% CD45+ (dim), CD34+ (small subset), CD117+ (variable), HLA DR+ (variable), CD11b-, CD11c+ (small subset), CD13+, CD14-, CD15-, CD16-, CD33+ (dim), CD64-, CD38+, CD56-, CD7+, CD71-/+ (dim in a minor subset), CD41-, CD62-, GLYA- Lymphocytes: 12% B-cells: 1.7%, polytypic/polyclonal sIg light chain pattern T-cells: no significant abnormalities of the markers tested CD4+ T-cells: 7.5% (including 0.1% CD57+ cells) CD8+ T-cells: 3.9% (including 0.2% CD57+ cells) CD4:CD8: 1.9 NK cells: 0.3% Neutrophilic Cells: 65% Decreased CD10, CD16, and CD11c; partial CD56 ( 4% of neutrophilic cells positive); decreased side scatter Monocytic Cells: 4% Slightly decreased CD14, partial CD56 ( 26% of monocytic cells positive) Eosinophils: 9% Mild relative increase Basophils: 0.9% No relative increase Plasma Cells: 0.6% Few detected; no overt abnormalities of the surface markers tested (plasma cells are typically underrepresented by flow cytometry; cytoplasmic light chains were assessed and were [address] [address] PATHOLOGY RPT PROCEDURE Name: STEVE SUJEY ACUNA Room #: REG [facility] Iverson#: [id number] Admission: 05/30/21 Date of : 55 Discharge: Report #: [id number] Path Case #: [id number] polyptypic) Hematogones: 1.0% Normal B-cell precursors CD45 Negative 3% No significant reactivity with the markers Events/Debris: tested (may represent unlysed red blood cells, erythroid precursors, platelets, debris, etc.) (erythroid precursors may be underrepresented due to sample lysis/processing) . Morphologic Evaluation A slide was reviewed for quality control projectionist purposes only. . Specimen Description Total Cell Yield:17.50X10 6 . Pertinent Prior Test Results Received Date Test Type Specimen Type Result 09/30/2020 Image Prognostic Unstained Tissue Result Number: Studies [id number] ER(Estrogen Receptor)- Present/Positive AR (Progesterone Receptor)- Present/Positive HER2-Not Over-Expressed Ki-67-Low Proliferation . Reagent(s) Used CD2, CD3, CD4, CD5, CD7, CD8, CD10, CD11b, CD11c, CD13, CD14, CD15, CD16, CD19, CD20, CD33, CD34, CD38, CD45, CD56, CD57, CD64, CD117, HLA-DR, kappa, lambda, CD41, CD62, CD71, CD138, LB652v(GPHA), CytoKappa, CytoLambda . at [facility]. Yan Driscoll MD Pathologist . . Intended Use Flow cytometry is optimally used to immunophenotypically characterize abnormal populations when they are detected. Negative flow cytometry results do not exclude lymphoma or neoplasia. Possible false negative flow cytometry results may occur in, but are not limited to, the following: neoplastic cells in Hodgkin lymphoma are not typically adequately represented by routine clinical flow cytometry; neoplastic cells may be lost or inadequately represented due to degeneration, sample processing, sampling artifact, or patchy involvement; plasma cells are typically underrepresented by flow cytometry; immature cells/blasts may be underrepresented due to hemodilution; myeloproliferative disorders and low grade myelodysplasia may not have immunophenotypic abnormalities or [address] [address] PATHOLOGY RPT PROCEDURE Name: SUJEY FOSS Room #: REG [facility]#: [id number] Admission: 05/30/21 Date of : 55 Discharge: Report #: [id number] Path Case #: [id number] increased blasts. Correlation with all available clinical, laboratory, and morphologic data is always necessary to assess for the possibility of false negative flow cytometry results and to establish a diagnosis. Each marker in this analysis was used to assess for potential antigenic abnormalities or to evaluate detected abnormalities. . Any image or images that accompany this report are patient services representative images only and should not be used to render a diagnosis. . Disclaimer(s) This test was developed and its performance characteristics determined by [facility]. It has not been cleared or approved by the Food and Drug Administration. . [facility] is a business unit of [facility] a wholly-owned subsidiary of [facility]. . This test was performed at [facility] at [address], [place], [address] - Continuous Miner Operator Helper: Didier Steinberg MD. . For inquiries, the physician may contact Lab: [phone] . A complete copy of the report is on file. . Professional services performed by [facility] at [address], [place] [address]. Technical services performed by [facility] at [address], [place] [address]. (CLW;hong 05/30/2021) S 05/31/2021 0920 Local . 02 Comment: Overall the bone marrow is markedly hypercellular for the patient's age with trilineage hematopoiesis, significant trilineage dyspoiesis and increased blasts/immature cells. 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 A myelodysplastic syndrome with increased blasts/evolving acute myeloid leukemia is also a diagnostic consideration; however, by CD117 immunohistochemical staining and morphology, the blasts are greater than 20%. The significant dyspoiesis raises the possibility of acute myeloid leukemia with myelodysplasia related changes. Correlation with clinical history (to exclude a disease-defining clinical history) and cytogenetics (to exclude a recurrent cytogenetic abnormality) is required. . [address] [address] PATHOLOGY RPT PROCEDURE Name: SUJEY FOSS Rama Room #: REG [facility] Raul.#: [id number] Admission: 05/30/21 Date of : 55 Discharge: Report #: [id number] Path Case #: [id number] The case is co-reviewed with Dr. Simone Sarah who agrees on 05/30/2021. The case is discussed with Dr. Kip Rajan on 05/30/2021 at 11:00. . (CLW:teacher advisor; 05/30/2021) . 02 Electronically signed: . Yani Gramajo MD, Pathologist NPI- [id number] . 01 Gross description: . A. The specimen is received in formalin, labeled "Sujey Foss, BM biopsy". It consists of multiple clemons irregular firm bony tissue fragments measuring 1.2 x 0.6 x 0.2 cm in aggregate. The specimen is placed in a biopsy bag and entirely submitted in A1 following light decalcification. . B. The specimen is received in formalin, labeled "Sujey Foss, BM aspirate". It consists of multiple red-brown, irregular gelatinous soft tissue fragments measuring 2.7 x 2.5 x 0.3 cm in aggregate. The specimen is placed in a biopsy bag and entirely submitted in B1. (MRF; 05/26/2021) MFE/MFE 05/26/2021 1853 Local . 02 Microscopic: . CBC Data (05/26/21): WBC 2600 /uL, RBC 2.43, hemoglobin 7.3 g/dL, hematocrit 21.2%, MCV 87.3 fL, MCH 30.1 pg, MCHC 34.5 g/dL, RDW 14.3%, and platelet count 121,000 /uL. White blood cell differential: Segs 57%, lymphs 28%, monos 12%, eos 1%, and basos 2%. . Peripheral Blood Smear: Cytomorphological examination of the Naranjo's stained peripheral blood smear confirms the provided data. Red blood cells show severe normocytic anemia with no significant anisopoikilocytosis. White blood cells are decreased in number. They are predominantly segmented neutrophils without significant dyspoiesis. Rare nuclear abnormalities are noted. Lymphocytes are predominantly small, round, and mature appearing with condensed chromatin and scant cytoplasm with admixed large granular lymphocytes. On scanning, rare possible blasts are noted. Monocytes are mature. Platelets are mildly decreased in number and mainly normal in morphology with rare larger platelets noted. . Aspirate Smears: Cytomorphological examination of the Naranjo's stained aspirate smears show hypercellular spicules present. The overall cellularity is approximately 80%. The myeloid to erythroid ratio is 2:1. Myeloid maturation is dyspoetic with an increase in immature forms, nuclear and cytoplasmic abnormalities. Erythroid maturation is markedly dyserythropoietic with irregular nuclear contours, nuclear cytoplasmic dyssynchrony, nuclear [facility] [address] [place] [address] PATHOLOGY RPT PROCEDURE Name: SUJEY FOSS Room #: REG [facility].#: [id number] Admission: 05/30/21 Date of : 55 Discharge: Report #: [id number] Path Case #: [id number] budding and left shifted maturation. In a 500 cell differential, there are 24% blasts (no Jefe rods are seen), 40% more differentiated myeloids, 17% erythroid precursors, 18% lymphocytes and 1% plasma cells. In a second 500 cell differential, there are 29% blasts (no Jefe rods are seen), 39% more differentiated myeloids, 18% erythroid precursors, 12% lymphocytes and 2% plasma cells. Megakaryocytes are proportional in number and both normal and abnormal in morphology with variable sizes and nuclear abnormalities including small and/or hypolobated forms present. Rare micro megakaryocytes are also noted. No lymphoid aggregates or markedly atypical lymphoid cells are seen. Plasma cells are without atypia. Iron stain of the aspirate smear shows 2/4+ iron positivity with spicules present. Rare ringed sideroblasts are identified. . Core Biopsy and Cell Clot: The decalcified bone marrow core biopsy is adequate. The bone marrow is hypercellular with an overall cellularity of approximately 80-90%. The myeloid to erythroid ratio is 1-2:1. Myeloid maturation is markedly abnormal with an increase in immature forms. Erythroid maturation is markedly dyserythropoietic. Megakaryocytes are inconspicuous. Small/hypolobated megakaryocytes are present. A rare interstitial lymphoid aggregate composed of small lymphocytes is noted. No markedly atypical lymphoid cells are seen. Bony trabeculae and blood vessels are unremarkable. The cell clot has spicules present that are similar in cellularity and differential morphology as previously described. . Properly controlled special stains are performed. . Block A1: Iron - 2/4+ iron positivity; Reticulin - Diffuse 2/4+ reticulin fibrosis. . Block B1: Iron - 2/4+ iron positivity with spicules present. . To confirm the flow cytometry findings and to identify cells in a tissue architectural context, properly controlled immunohistochemical stains are performed. . Block A1: CD34 - immature cells are focally reactive with CD34; CD117 - greater than 20% positive cells/blasts; Myeloperoxidase - stains the myeloid cells including partially staining the immature cells; Glycophorin A - stains the erythroid precursors including occasional immature cells; AE1/AE3 - nonreactive. . Block B1: [address] [address] PATHOLOGY RPT PROCEDURE Name: SUJEY FOSS Rama Room #: REG [facility].#: [id number] Admission: 05/30/21 Date of : 55 Discharge: Report #: [id number] Path Case #: [id number] CD34 - immature cells are essentially negative for CD34; CD117 - greater than 20% positive cells/blasts; Myeloperoxidase - stains the myeloid cells including partially staining the immature cells; Glycophorin A - stains the erythroid precursors including occasional immature cells; AE1/AE3 - nonreactive. . Flow Cytometry: Flow cytometric immunophenotypic analysis was performed at [facility]. The interpretation is "features of myeloid dysmaturation with at least 4.2% abnormal myeloid blasts, 0.6% polytypic plasma cells detected, mild relative eosinophilia (9%)." There are 4.2% myeloid blasts that are characterized as CD45 positive (dim), CD34 positive (small subset), CD117 positive (variable), HLA-DR positive (variable), CD11b negative, CD11c positive (small subset), CD13 positive, CD14 negative, CD15 negative, CD16 negative, CD33 positive (dim), CD64 negative, CD38 positive, CD56 negative, CD7 positive, CD71 negative/positive (dim in a minor subset), CD41 negative, CD62 negative and glycophorin A negative. There are 12% lymphocytes. Of the lymphocytes, there are 1.7% polyclonal B-cells. T-cells have a CD4/CD8 ratio of 1.9 and no aberrant T-cell antigen expression. Please see separate flow cytometry report from [facility] ([id number]). . Cytogenetics Analysis: Cytogenetic chromosomal analysis is pending at [facility] ([id number]). . (CLW:elie; 05/30/2021) . 02 Pathologist provided ICD-10: D61.818, D64.9, D72.819, D69.6 . 02 CPT . 756663, 184591, 149671, 599670, 884842, 602369, 558851, 897416, 372033, Y69181, [id number] Specimen Comment: A courtesy copy of this report has been sent to [phone] Specimen Comment: Report sent to DR. MIRZA Specimen Comment: A duplicate report has been generated due to demographic updates. Performed at: [address] [facility] [id number] [facility] [address], [place], [place] [id number] MD Sonu Verde MD Phone: [phone] Performed at: [address] [id number] MD Yani Gramajo MD Phone: [phone]
== END | disposition home or self-care (01) ==
LOC: SPEC 09:11
PROVIDERS: Radiology Diagnostic Radiology; ATTEND Internal Medicine
DX: D61.818 Other pancytopenia (principal); D69.6 Thrombocytopenia, unspecified; D72.819 Decreased white blood cell count, unspecified; K21.9 Gastro-esophageal reflux disease without esophagitis; I73.9 Peripheral vascular disease, unspecified; M19.90 Unspecified osteoarthritis, unspecified site; M54.5 Low back pain; G89.29 Other chronic pain; Z98.890 Other specified postprocedural states; Z79.899 Other long term (current) drug therapy; Z90.49 Acquired absence of other specified parts of digestive tract; Z85.3 Personal history of malignant neoplasm of breast; Z88.8 Allergy status to other drugs, medicaments and biological substances

== ENCOUNTER → 2021-06-15 | Outpatient (CLI) | payer OTHER, MEDICARE ==
[2021-06-15 09:44] LABS: HEMATOCRIT 20.1 % (37.0-47.0)
[2021-06-15 09:50] VITALS: BP 107/37
[2021-06-15 11:35] VITALS: BP 106/49; BP 98/35
--- NOTE | 2021-06-15 14:20 | NUR ---
HERE FOR BLOOD TRANSFUSION, ONE UNIT, FOR HGB 7.0 (H&H REPEATED TODAY). PT HAS BEEN SYMPTOMATIC WITH WEAKNESS, LOW ENERGY, DIZZINESS WHEN UP. HAS BEEN LOSING WEIGHT, HAS NO APPETITE. 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 PLAN IS TO PLACE A PICC LINE TOMORROW AT THEN START INDUCTION CHEMO ON SATURDAY WITH PLANNED STEM CELL TRANSPLANT. PT UNDERSTANDABLY EMOTIONAL TODAY AND SHARING HER UNDERSTANDING OF THE SITUATION AND REALISM OF POSSIBLE OUTCOME. DAUGHTER FLEW HOME FROM [place], ARRIVED EARLY AFTERNOON. WITH PT THIS MORNING AND COORDINATING PLANS WITH [facility]. BOTH VERBALIZE UNDERSTANDING OF PLAN TODAY FOR THE TRANSFUSION AND TO F/U TOMORROW WITH . T&C DRAWN WITH IV START. ONE UNIT [facility] TRANSFUSED WITHOUT INCIDENT. NO S/S REACTION. PT STATES SHE DID HAVE HER FIRST COVID VACCINE WELL THE FLU VACCINE YESTERDAY AT . NO FEVERS/BODY ACHES OR NOTED SIDE EFFECTS FROM THOSE INJECTIONS OTHER THAN A SORE ARM. DISMISSED POST TRANSFUSION IN STABLE CONDITION.
== END ==
LOC: OPONC 08:44
PROVIDERS: ATTEND Internal Medicine
DX: D64.9 Anemia, unspecified (principal); R53.1 Weakness; R42 Dizziness and giddiness
CPT/HCPCS: 91030

== ENCOUNTER → 2021-08-28 | Outpatient (CLI) | payer OTHER, MEDICARE | LOC: ULTRA 12:33 | PROVIDERS: ATTEND Surgery | DX: Z45.2 Encounter for adjustment and management of vascular access device (principal); I82.A11 Acute embolism and thrombosis of right axillary vein; N63.11 Unspecified lump in the right breast, upper outer quadrant; R92.8 Other abnormal and inconclusive findings on diagnostic imaging of breast ==